=== PATIENT | male | born 1975 | race American Indian/Alaskan Native ===

== ENCOUNTER 2019-02-18 09:22 | Outpatient (CLI) | payer OTHER ==
--- NOTE | 2019-02-18 12:21 | Magnetic Resonance Report ---
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 TECHNIQUE: Multiplanar, multisequence MR images of the brain were obtained. COMPARISON: None available. FINDINGS: BRAIN / INTRACRANIAL CONTENTS: Unenhanced and enhanced MR images of the brain were obtained with spec ial attention to the region of the cerebellopontine angle. There is no evidence of acoustic neuroma. No abnormal mass or enhancement is seen within the region of the internal auditory canals or cerebell opontine angles. Images of the brain demonstrate no evidence of intracranial abnormality. There is no evidence of acut e ischemic injury, demyelination, hemorrhage, or mass. There are no abnormal extra-axial fluid collec tions. There is no abnormal contrast enhancement. EXTRACRANIAL: Unremarkable CRANIOCERVICAL JUNCTION: No significant abnormality. VASCULAR FLOW-VOIDS: No significant abnormality. IMPRESSION: Negative unenhanced and enhanced MRI of the brain. No evidence of acoustic. Signer Name: Curtis Figueroa MD Signed: 02/18/2019 12:16 PM Workstation Name: [id number]
== END 2019-02-18 09:23 | disposition home or self-care (01) ==
LOC: MRI 09:22
PROVIDERS: ATTEND Specialist
DX: H91.8X1 Other specified hearing loss, right ear (principal)
CPT/HCPCS: 70551